=== PATIENT | female | born 1965 | race Caucasian/White ===

== ENCOUNTER → 2023-06-03 09:43 | Outpatient (BNVA) | payer OTHER, SELFPAY | PROVIDERS: PCP Nurse Practitioner Family; Visit Provider Nurse Practitioner Family | DX: S93.492A Sprain of other ligament of left ankle, initial encounter (principal); S82.409A Unspecified fracture of shaft of unspecified fibula, initial encounter for closed fracture; X58.XXXA Exposure to other specified factors, initial encounter | CPT/HCPCS: 73610 ==